=== PATIENT | female | born 1970 | race Caucasian/White ===

== ENCOUNTER 2017-01-03 12:00 | Inpatient (IN) | payer OTHER ==
[~2017-01-03] VITALS: Ht 170.2 cm; Wt 88.5 kg
--- NOTE | ~2017-01-03 | HP ---
Unit #: [id number] #: [id number] Patient: MONICA POP V [id number] [place] [address] [id number] I MR#: [id number] NAME: MONICA POP V. ROOM: [facility] Age: 46 Sex: F Admission Date: 01/03/2017 : 1970 Attending Physician: Ed Oscar M.D. Admitting Physician: Ed Oscar M.D. Primary Care Physician: Generic Doctor Not In System HISTORY AND PHYSICAL HISTORY OF PRESENT ILLNESS Monica is a 46 year old admitted to [facility] because of her continued abuse of alcohol. She has had other admissions to this facility for the same. PAST MEDICAL HISTORY 1. Long history of alcohol abuse. 2. Obesity. 3. History of cervical dysplasia. PAST SURGICAL HISTORY Nothing reported. ALLERGIES Codeine. SOCIAL HISTORY Smokes 1 pack per day. Drinks at least a 12 pack of beer on a daily basis. Has a history of regular marijuana use and abuse of opioids. FAMILY HISTORY Medically noncontributory. REVIEW OF SYSTEMS CONSTITUTIONAL: No fever or chills. HEENT: Denies any sore throat, ear pain or runny nose. CARDIOVASCULAR: Denies chest pain, irregular heart rhythm or palpitations. CHEST: Denies shortness of breath or cough. No hemoptysis. GASTROINTESTINAL: Denies nausea, vomiting, diarrhea or chronic constipation. ENDOCRINE: Denies history of increased thirst or urination. No recent significant weight loss or gain. GENITOURINARY: Denies dysuria, frequency, or hematuria. SKIN: Denies any rashes. HEMATOLOGIC: Denies history of increased bleeding or bruising. MUSCULOSKELETAL: Denies any hot, swollen joints. No generalized muscle pain. NEUROLOGIC: Denies problems with vision or speech. No frequent, severe headaches. No numbness, tingling or weakness in any extremities. Denies loss of bladder or bowel control. CURRENT MEDICATIONS 1. Desyrel 100 mg q.h.s. 2. Milk of Magnesia p.r.n. Unit #: [id number] #: [id number] Patient: MONICA POP V 3. Maalox p.r.n. 4. Tylenol p.r.n. 5. Multivitamin 1 daily. 6. Nicotine patch 14 mg daily. PHYSICAL EXAMINATION GENERAL: Alert, morbidly obese, no apparent distress. VITAL SIGNS: Blood pressure 104/76, heart rate 80, respirations 16, temperature 98.6. WEIGHT: 195. HEIGHT: 5 feet 7 inches. SKIN: Warm and dry without rash or lesion. HEENT: Normocephalic. TMs not viewed. Oral and nasal passages clear. Conjunctivae clear. PERRLA. EOMs intact. NECK: Supple without lymphadenopathy or thyromegaly. HEART: Regular rate and rhythm without murmur. LUNGS: Clear. ABDOMEN: Soft, nontender. : Not done. EXTREMITIES: No evidence of cyanosis, clubbing or edema. Moves all without focal deficit. NEUROLOGICAL: Grossly within normal limits. Cranial Nerves: II: Visual rodriguez are intact. III, IV AND : Extraocular movements are intact. Pupils are equal, round and reactive to light. V: Facial sensation is grossly normal. VII: Facial movements and expression are normal. VIII: Auditory acuity grossly intact. IX, X: Uvula is midline. Phonation is normal. XI: Patient shrugs shoulders and turns head normally. XII: Tongue protrudes in the midline. Sensory and Motor Function: Sensory and motor sensation is grossly normal. Motor: moves all extremities well. Coordination: Gait is normal. Deep Tendon Reflexes: Intact. IMPRESSION Psychiatric admission. RECOMMENDATIONS PSYCHIATRIC: Per psychiatrist. MEDICAL: See no contraindication to participate in facility's activities. MEDICAL PROGNOSIS Good. MEDICAL CONDITION Stable. Dictated by... Abbey Treviño P.A.-C. for Ruth Self/aliza TD: 01/03/2017 23:15 JOB #: [id number] Unit #: [id number] #: [id number] Patient: MONICA POP V HISTORY AND PHYSICAL Page 1 of 1 X Abbey Treviño HISTORY AND PHYSICAL
--- NOTE | ~2017-01-03 | PA ---
Unit #: [id number] #: [id number] Patient: MONICA POP V [id number] [facility] [address] [place] [address] [id number] I MR#: [id number] NAME: MONICA POP V. ROOM: [facility] Age: 46 Sex: F Admission Date: 01/03/2017 : 1970 Date of Assessment: 01/04/2017 Attending Physician: Ed Oscar M.D. Admitting Physician: Ed Oscar M.D. Primary Care Physician: Generic Doctor Not In System PSYCHIATRIC ASSESSMENT INFORMANT(S) Patient, reliable. OLOP, reliable. CHIEF COMPLAINT Suicidal ideation. HISTORY OF PRESENT ILLNESS Monica is a 46-year-old woman who reports that she was intoxicated and agitated when she was picked up by EMS. She could not recall exactly what had been going on but admitted she had been drinking a lot and had been ejected from her [facility] jail. She was unable to contract for safety and was admitted due to her decompensation. PAST PSYCHIATRIC HISTORY Last admission in May 2016. She has had previous admissions to this facility and follows up with [facility]. FAMILY PSYCHIATRIC HISTORY None reported. SOCIAL HISTORY The patient is a high school graduate. 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 She has 3 children who are in the custody of a former boyfriend. PAST MEDICAL HISTORY Significant for a history of asthma. MEDICATIONS Previously, the patient was on Prozac, ReVia, Neurontin, and Vistaril. ALLERGIES Codeine. SUBSTANCE ABUSE HISTORY The patient has an extensive history of alcohol dependence with experimentation with cocaine, opiates, and cannabis. MENTAL STATUS EXAMINATION Monica presented as a mildly disheveled woman who appeared her stated age. She was cooperative with the examination. Her speech was spontaneous and easily understood. Her musculoskeletal examination was calm. Her mood Unit #: [id number] #: [id number] Patient: MONICA POP V was irritable and anxious with a congruent affect. She was alert and fully oriented. Her memory and concentration were fair. Her thought processes were goal-directed with no active psychosis. She reported suicidal ideation and could not contract for safety outside of the hospital. Insight and judgment were fair. Fund of knowledge and abstraction were fair. ADMITTING DIAGNOSES AXIS I: Major depression. Alcohol dependence. AXIS II: No diagnosis. AXIS III: Asthma. PSYCHIATRIC PLAN/TREATMENT GOALS/DISCHARGE PLANNING The patient was admitted and placed on suicidal precautions and the alcohol detox protocol. Home medications will be confirmed and restarted. She will enroll in dual diagnosis groups and activities. Treatment goals are resolution of SI, establishment of sobriety, improvement in insight, and improvement in coping skills. Discharge planning: Follow up with [facility]. ESTIMATED LENGTH OF STAY 5 days. Dictated by... Ed Oscar M.D. GISELLE/shira TD: 01/05/2017 13:01 JOB #: [id number] PSYCHIATRIC ASSESSMENT Page 1 of 1 X Ed Oscar MD X PSYCHIATRIC ASSESSMENT
--- NOTE | ~2017-01-03 | DS ---
Unit #: [id number] #: [id number] Patient: MONICA POP V [id number] [place] [address] [id number] I MR#: [id number] NAME: MONICA POP V. ROOM: [facility] Age: 46 Sex: F Admission Date: 01/03/2017 : 1970 Discharge Date: 01/09/2017 Attending Physician: Ed Oscar M.D. Primary Care Physician: Generic Doctor Not In System DISCHARGE SUMMARY REASON FOR ADMISSION Monica is a 46-year-old woman with a history alcohol dependence who reported that she was suicidal and had a need to detox. She was admitted for stabilization. DIAGNOSTIC STUDIES LABORATORY DATA: Please see hospital chart. HOSPITAL COURSE The patient was admitted and placed on the alcohol detox protocol and suicide precautions. Prozac and trazodone were restarted from her primary care physician, and she requested to start on Antabuse as soon as it was safe to do so. She had active withdrawal symptoms but did participate appropriately in unit groups and activities and did not make any apparent suicidal gestures in the hospital. On the day of discharge, she was able to contract for safety in the outpatient setting. DISCHARGE DIAGNOSES AXIS I: Alcohol dependence. Major depression. AXIS II: No diagnosis. AXIS III: History of asthma. DISCHARGE INSTRUCTIONS Patient to follow up with primary care physician and with the [facility]. DISCHARGE MEDICATIONS 1. Prozac 60 mg daily for depression. 2. Trazodone 100 mg at bedtime for insomnia. 3. Antabuse 250 mg at bedtime for alcoholism. CONDITION ON DISCHARGE Fair. PROGNOSIS Fair to good. DIET AND ACTIVITY Per primary care doctor. Unit #: [id number] #: [id number] Patient: MONICA POP V Dictated by... Ruth GreeneH/bzg TD: 03/21/2017 09:11 JOB #: [id number] DISCHARGE SUMMARY Page 1 of 1 X Ed Oscar MD X DISCHARGE SUMMARY
[2017-01-04 09:54] LABS: BASOPHIL% 0.3 % (0-2.5); EOSINOPHIL# 0.1 X10e3 (0-0.7); EOSINOPHIL% 1.4 % (0.0-7.0); HEMATOCRIT 40.4 % (35.0-45.0); HEMOGLOBIN 13.2 gm/dL (12.0-16.0); LYMPHOCYTE# 2.8 X10e3 (1.0-3.5); LYMPHOCYTE% 29.6 % (17.0-45.0); MEAN CELL VOLUME 87.7 FL (83-96); MEAN CORPUSCULAR HEMOGLOBIN 28.6 PG (28-34); MEAN CORPUSCULAR HGB CONC 32.6 g/dL (30-36); MEAN PLATELET VOLUME 7.9 FL (6.5-11.5); MONOCYTE# 0.6 X10e3 (0-1.0); MONOCYTE% 6.7 % (3.0-12.0); NEUTROPHIL# 5.8 X10e3 (1.5-7.1); PLATELET COUNT 291 X10e3 (140-420); RED CELL DISTRIBUTION WIDTH 14.8 % (11.0-15.5); WHITE BLOOD COUNT 9.3 X10e3 (4.0-10.5)
[2017-01-04 10:04] LABS: DIFF IND NO
[2017-01-04 10:31] LABS: ALBUMIN SERUM 3.3 g/dL (3.5-5.0); BILIRUBIN,TOTAL 0.7 mg/dL (0.2-2.0); CALCIUM SERUM 8.7 mg/dL (8.4-10.2); CREATININE SERUM 0.5 mg/dL (0.6-1.4); GLOM FILT RATE Estimated 116.9 mL/min (>60); POTASSIUM 4.1 mmol/L (3.5-5.1); PROTEIN TOTAL SERUM 5.6 g/dL (6.0-8.3)
[2017-01-05 11:22] LABS: AMPHETAMINE NEG (NEG); BARBITURATES NEG (NEG); BENZODIAZEPINES NEG (NEG); COCAINE NEG (NEG); MARIJUANA NEG (NEG); OPIATES NEG (NEG); TRICYCLIC ANTIDEPRESSANTS NEG (NEG); U METHADONE NEG (NEG)
== END 2017-01-09 11:25 | DRG 885 ==
LOC: P1E 14:14
PROVIDERS: Psychiatry & Neurology Psychiatry
DX: F33.9 Major depressive disorder, recurrent, unspecified (principal); E66.9 Obesity, unspecified; F10.20 Alcohol dependence, uncomplicated; F17.210 Nicotine dependence, cigarettes, uncomplicated; Z88.5 Allergy status to narcotic agent
CPT/HCPCS: 80053; 80307; 84703; 85025